=== PATIENT | female | born 1945 | race Caucasian/White ===

== ENCOUNTER 2018-05-18 20:16 | Emergency (ER) | payer MEDICARE ==
[~2018-05-18] VITALS: Ht 167.6 cm; Wt 81.7 kg
[2018-05-18 21:06] LABS: BASOPHILS ABSOLUTE AUTO 0.06 K/mm3 (0.00-0.23); BASOPHILS PERCENT AUTO 1 % (0-2); EOSINOPHILS ABSOLUTE AUTO 0.21 K/mm3 (0.00-0.68); EOSINOPHILS PERCENT AUTO 2 % (0-6); Hematocrit 45.7 % (33.0-51.0); Hemoglobin 15.2 g/dL (11.5-16.0); IMMATURE GRAN ABSOLUTE AUTO 0.04 K/mm3 (0.00-0.10); IMMATURE GRAN PERCENT AUTO 0 % (0-1); LYMPHOCYTES ABSOLUTE AUTO 1.37 K/mm3 (0.84-5.20); LYMPHOCYTES PERCENT AUTO 13 % (21-46); MONOCYTES PERCENT AUTO 5 % (4-13); Mean Corpuscular HGB 30.2 pg (26.0-34.0); Mean Corpuscular HGB Conc 33.3 g/dL (31.5-36.5); Mean Corpuscular Volume 91 fL (80-100); Mean Platelet Volume 10.7 fL (9.1-12.4); NEUTROPHILS ABSOLUTE AUTO 8.22 K/mm3 (1.96-9.15); NEUTROPHILS PERCENT AUTO 79 % (41-73); Platelet Count 140 K/mm3 (150-400); RDW Standard Deviation 46.5 fL (35.1-46.3); Red Blood Cell Count 5.03 M/mm3 (3.80-5.20)
[2018-05-18 21:07] LABS: Source, Urine Clean Catch
[2018-05-18 21:14] LABS: Bilirubin, Urine Neg (Neg); Blood, Urine 1+ (Neg); Glucose Qualitative, Urine Neg (Neg); Ketones, Urine 1+ (Neg); Leukocyte Esterase, Urine 1+ (Neg); Nitrite, Urine Neg (Neg); Protein, Urine 1+ (Neg); Urobilinogen, Urine 1+ (Normal)
[2018-05-18 21:23] LABS: Albumin, Blood 4.2 g/dL (3.4-5.0); Albumin/Globulin Ratio 1.1 (0.8-1.8); Bilirubin, Total 0.5 mg/dL (0.1-1.0); Bun/Creatinine Ratio 16.9 (12.0-20.0); Calcium, Blood 9.1 mg/dL (8.5-10.1); Creatinine, Blood 1.48 mg/dL (0.40-1.00); Globulin, Blood 3.8 g/dL (2.2-4.0); Potassium, Blood 4.1 mmol/L (3.5-5.5)
[2018-05-18 21:29] LABS: Appearance, Urine Hazy (Clear); Bacteria Few /hpf; Color, Urine Yellow (P-Yellow); Squamous Epithelial Cells Few /hpf (Few)
[2018-05-18 21:30] LABS: Mucus Light ([, 0-Heavy])
[2018-05-18] MEDS ORDERED: CLOP75 PO (22:07)
[2018-05-18] MEDS ORDERED: PANT20 PO (22:07)
[2018-05-18] MEDS ORDERED: SERT100 PO (22:07)
[2018-05-18] MEDS ORDERED: AMLO5 PO (22:07)
[2018-05-18] MEDS ORDERED: CARV6.25 PO (22:07)
[2018-05-18] MEDS ORDERED: LOSA50 PO (22:07)
[2018-05-18] MEDS ORDERED: CENTRUM SILVER1 EAC2 PO (22:08)
[2018-05-18] MEDS ORDERED: ASPI81CH PO (22:08)
[2018-05-18] MEDS ORDERED: ALBU90OI61 INH (22:08)
[2018-05-18] MEDS ORDERED: BREO ELLIPTA 11 EACH INH (22:08)
== END 2018-05-19 00:55 | disposition home or self-care (01) ==
LOC: ER 20:16
PROVIDERS: Emergency Medicine
DX: K44.9 Diaphragmatic hernia without obstruction or gangrene (principal); K59.00 Constipation, unspecified; I10 Essential (primary) hypertension; J45.909 Unspecified asthma, uncomplicated; Z88.0 Allergy status to penicillin; Z88.5 Allergy status to narcotic agent; Z79.899 Other long term (current) drug therapy; Z79.82 Long term (current) use of aspirin
CPT/HCPCS: 74177; 80053; 81001; 83690; 85025; 87086; 99284-25; Q9967

== ENCOUNTER 2019-01-21 15:02 | Emergency (ER) | payer MEDICARE ==
[~2019-01-21] VITALS: Ht 165.1 cm; Wt 77.1 kg
[~2019-01-21 15:02] MED LIST: ALBU90OI61 INH; AMLO5 PO; ASPI81CH PO; BREO ELLIPTA 11 EACH INH; CARV6.25 PO; CENTRUM SILVER1 EAC2 PO; CLOP75 PO; LOSA50 PO; PANT20 PO; SERT100 PO
== END 2019-01-21 16:51 | disposition home or self-care (01) ==
LOC: ER 15:02
DX: S00.81XA Abrasion of other part of head, initial encounter (principal); I10 Essential (primary) hypertension; K21.9 Gastro-esophageal reflux disease without esophagitis; Z88.0 Allergy status to penicillin; Z88.5 Allergy status to narcotic agent; Z79.899 Other long term (current) drug therapy; Z79.01 Long term (current) use of anticoagulants; Z86.73 Personal history of transient ischemic attack (TIA), and cerebral infarction without residual deficits; Z87.891 Personal history of nicotine dependence; W01.0XXA Fall on same level from slipping, tripping and stumbling without subsequent striking against object, initial encounter
CPT/HCPCS: 70450; 99283-25

== ENCOUNTER 2019-10-05 21:51 | Inpatient (IN) | payer MEDICARE ==
[~2019-10-05] VITALS: Ht 165.1 cm; Wt 73.9 kg
[2019-10-05 22:46] LABS: BASOPHILS ABSOLUTE AUTO 0.08 K/mm3 (0.00-0.23); BASOPHILS PERCENT AUTO 1 % (0-2); EOSINOPHILS ABSOLUTE AUTO 0.16 K/mm3 (0.00-0.68); EOSINOPHILS PERCENT AUTO 3 % (0-6); Hematocrit 45.2 % (33.0-51.0); Hemoglobin 14.8 g/dL (11.5-16.0); IMMATURE GRAN ABSOLUTE AUTO 0.05 K/mm3 (0.00-0.10); IMMATURE GRAN PERCENT AUTO 1 % (0-1); LYMPHOCYTES ABSOLUTE AUTO 0.75 K/mm3 (0.84-5.20); LYMPHOCYTES PERCENT AUTO 12 % (21-46); MONOCYTES ABSOLUTE AUTO 0.25 K/mm3 (0.16-1.47); MONOCYTES PERCENT AUTO 4 % (4-13); Mean Corpuscular HGB 30.1 pg (26.0-34.0); Mean Corpuscular HGB Conc 32.7 g/dL (31.5-36.5); Mean Corpuscular Volume 92 fL (80-100); NEUTROPHILS ABSOLUTE AUTO 5.11 K/mm3 (1.96-9.15); NEUTROPHILS PERCENT AUTO 80 % (41-73); RDW Coefficient Variation 14.4 % (11.7-14.2); RDW Standard Deviation 48.6 fL (35.1-46.3); Red Blood Cell Count 4.92 M/mm3 (3.80-5.20)
[2019-10-05] MEDS ORDERED: IRBESARTAN300 MG PO (22:46)
[2019-10-05 22:47] LABS: Mean Platelet Volume 13.5 fL (9.1-12.4)
[2019-10-05] MEDS ORDERED: Prednisone50 MG PO (22:47)
[2019-10-05 22:48] LABS: Platelet Count 38 K/mm3 (150-400)
[2019-10-05] MEDS ORDERED: FUROSEMIDE20 MG PO (22:48)
[2019-10-05 22:56] LABS: Albumin, Blood 3.6 g/dL (3.4-5.0); Albumin/Globulin Ratio 0.9 (0.8-1.8); Bilirubin, Total 0.6 mg/dL (0.1-1.0); Bun/Creatinine Ratio 20.1 (12.0-20.0); Calcium, Blood 8.5 mg/dL (8.5-10.1); Creatinine, Blood 1.39 mg/dL (0.40-1.00); Globulin, Blood 4.1 g/dL (2.2-4.0); Total Protein, Blood 7.7 g/dL (6.4-8.2)
[2019-10-05 23:16] LABS: International Normalized Ratio 1.05; Prothrombin Time Results 11.1 Sec (9.7-11.5)
[2019-10-05 23:37] LABS: BASOPHILS ABSOLUTE AUTO 0.07 K/mm3 (0.00-0.23); BASOPHILS PERCENT AUTO 1 % (0-2); EOSINOPHILS ABSOLUTE AUTO 0.14 K/mm3 (0.00-0.68); EOSINOPHILS PERCENT AUTO 2 % (0-6); Hematocrit 44.6 % (33.0-51.0); Hemoglobin 14.5 g/dL (11.5-16.0); IMMATURE GRAN ABSOLUTE AUTO 0.04 K/mm3 (0.00-0.10); IMMATURE GRAN PERCENT AUTO 1 % (0-1); LYMPHOCYTES ABSOLUTE AUTO 0.59 K/mm3 (0.84-5.20); LYMPHOCYTES PERCENT AUTO 10 % (21-46); MONOCYTES ABSOLUTE AUTO 0.31 K/mm3 (0.16-1.47); MONOCYTES PERCENT AUTO 5 % (4-13); Mean Corpuscular HGB 30.1 pg (26.0-34.0); Mean Corpuscular HGB Conc 32.5 g/dL (31.5-36.5); Mean Corpuscular Volume 93 fL (80-100); NEUTROPHILS ABSOLUTE AUTO 4.97 K/mm3 (1.96-9.15); NEUTROPHILS PERCENT AUTO 81 % (41-73); RDW Coefficient Variation 14.4 % (11.7-14.2); RDW Standard Deviation 48.8 fL (35.1-46.3); Red Blood Cell Count 4.81 M/mm3 (3.80-5.20); White Blood Cell Count 6.12 K/mm3 (4.00-11.30)
[2019-10-05 23:38] LABS: Mean Platelet Volume 13.1 fL (9.1-12.4); Platelet Count 37 K/mm3 (150-400)
[2019-10-05 23:41] LABS: Base Excess Venous 6.7 mmol/L; Bicarbonate Venous 28.9 mmol/L (24.0-30.0); pH Blood Venous 7.41 (7.34-7.37)
[2019-10-05 23:59] LABS: Source, Urine Clean Catch
[2019-10-06 00:02] LABS: Bilirubin, Urine Neg (Neg); Blood, Urine 5+ (Neg); Glucose Qualitative, Urine Neg (Neg); Ketones, Urine Neg (Neg); Leukocyte Esterase, Urine 2+ (Neg); Nitrite, Urine Neg (Neg); Protein, Urine 2+ (Neg); Urobilinogen, Urine NORM (Normal)
[2019-10-06 00:04] LABS: Appearance, Urine Hazy (Clear); Bacteria Rare /hpf; Color, Urine Yellow (P-Yellow); Mucus Light (0-Heavy); Squamous Epithelial Cells Few /hpf (Few)
[2019-10-06 00:05] LABS: Amorphous Light (0-Heavy); Transitional Epithelial Cells Few /hpf (0-Rare)
[2019-10-06 05:18] LABS: Hematocrit 43.1 % (33.0-51.0); Hemoglobin 13.8 g/dL (11.5-16.0); Mean Corpuscular HGB 29.6 pg (26.0-34.0); Mean Corpuscular Volume 93 fL (80-100); RDW Coefficient Variation 14.5 % (11.7-14.2); RDW Standard Deviation 48.9 fL (35.1-46.3); Red Blood Cell Count 4.66 M/mm3 (3.80-5.20); White Blood Cell Count 6.14 K/mm3 (4.00-11.30)
[2019-10-06 05:23] LABS: Mean Platelet Volume 13.7 fL (9.1-12.4)
[2019-10-06 05:39] LABS: Platelet Count 27 K/mm3 (150-400)
[2019-10-06 05:56] LABS: Albumin, Blood 3.1 g/dL (3.4-5.0); Albumin/Globulin Ratio 0.9 (0.8-1.8); Bun/Creatinine Ratio 21.5 (12.0-20.0); Calcium, Blood 8.4 mg/dL (8.5-10.1); Creatinine, Blood 1.35 mg/dL (0.40-1.00); Globulin, Blood 3.6 g/dL (2.2-4.0); Potassium, Blood 3.8 mmol/L (3.5-5.5); Total Protein, Blood 6.7 g/dL (6.4-8.2)
[2019-10-06 06:15] LABS: Adenovirus Not Detected (NOT DETECT); Bordetella pertussis Not Detected (NOT DETECT); Chlamydophila pneumoniae Not Detected (NOT DETECT); Coronavirus 229E Not Detected (NOT DETECT); Coronavirus HKU1 Not Detected (NOT DETECT); Coronavirus NL63 Not Detected (NOT DETECT); Coronavirus OC43 Not Detected (NOT DETECT); Human Metapneumovirus Not Detected (NOT DETECT); Human Rhinovirus/Enterovirus Not Detected (NOT DETECT); Influenza A Not Detected (NOT DETECT); Influenza A/2009-H1 Not Detected (NOT DETECT); Influenza A/H1 Not Detected (NOT DETECT); Influenza A/H3 Not Detected (NOT DETECT); Influenza B Not Detected (NOT DETECT); Mycoplasma pneumoniae Not Detected (NOT DETECT); Parainfluenza Virus 1 Not Detected (NOT DETECT); Parainfluenza Virus 2 Not Detected (NOT DETECT); Parainfluenza Virus 3 Not Detected (NOT DETECT); Parainfluenza Virus 4 Not Detected (NOT DETECT); Respiratory Syncytial Virus Not Detected (NOT DETECT)
--- NOTE | 2019-10-06 06:27 | NUR ---
SHIFT SUMMARY PT WAS A NEW ADMIT DURING THE NIGHT, ARRIVING ON THE FLOOR AT 0215. SHE WAS ADMITTED FOR ACUTE ENCEPHALOPATHY. PT IS A&O X 1-2, CONFUSED AND EASILY DISTRACTED. PT CAN HAVE DIFFICULTY ANSWERING QUESTIONS, AND IS FORGETFUL AT TIMES. PER REPORT, PT IS NORMALLY A&O X 4 AND INDEPENDENT AT BASELINE. SHE DENIED ANY COMPLAINTS OF ACUTE PAIN, NAUSEA OR SOB. VITAL SIGNS STABLE. PT RECEIVED NS @ 100 ML/HR THROUGH THE NIGHT. NO OTHER ACUTE CHANGES IN PT CONDITION NOTED SINCE ADMISSION. WILL CONTINUE TO MONITOR AND TREAT PER EMAR UNTIL HAND OFF TO DAY SHIFT RN.
[2019-10-06 14:20] LABS: Source, Urine Clean Catch
[2019-10-06 14:25] LABS: Bilirubin, Urine Neg (Neg); Blood, Urine Neg (Neg); Glucose Qualitative, Urine Neg (Neg); Ketones, Urine Neg (Neg); Leukocyte Esterase, Urine Neg (Neg); Nitrite, Urine Neg (Neg); Protein, Urine 1+ (Neg); Specific Gravity, Urine 1.015 (1.003-1.022); Urobilinogen, Urine NORM (Normal)
[2019-10-06] MEDS ORDERED: THERA-D2000 UNIT PO (14:31)
[2019-10-06 14:34] LABS: Appearance, Urine Clear (Clear); Color, Urine Yellow (P-Yellow)
[2019-10-06 14:40] LABS: U Amphetamine Screen Not Detected; U Barbituate Screen Not Detected; U Benzodiazapine Screen Not Detected; U Buprenorphine Screen Not Detected; U Cannabinoids Screen Not Detected; U Cocaine Screen Not Detected; U Methadone Screen Not Detected; U Methamphetamine Screen Not Detected; U Opiates Screen Not Detected; U Oxycodone Screen Not Detected; U Phencyclidine Screen Not Detected; U Propoxyphene Screen Not Detected
--- NOTE | 2019-10-06 19:02 | NUR ---
PT. SLEEPING AT THIS TIME, REFUSED DINNER AND ONLY TOOK BITES OF HER BKFST AND LUNCH. PT. VERY LETHARGIC, NEURO CHECKS WNL. PT. NOTED TO HAVE SUSPICIOUS BRUISING. PT. MENTATION WITHOUT CHANGE TODAY. BLADDER SCAN DONE THIS AM R/T NO VOID. THERE WAS 285 IN BLADDER. IN/OUT CATH PERFORMED SO WE COULD SEND THE URINE FOR TESTING. URINE WAS CLEAR YELLOW. PT. IS TO HAVE AN EEG BUT THEY WILL NOT BE ABLE TO DO IT UNTIL TUESDAY. PREP ON FRONT OF CHART. TOX SCREEN AND UA CLEAR.
--- NOTE | 2019-10-07 02:46 | NUR ---
Pt on tele, had short run of V-tac, and was a mouth breather sats @ 85. Asymptomatic, (Dr Link) notified, orders received for a mask for O2. Currently sats in the 90's. Remains asymptomatic. Call light in reach. Will continue to monitor.
--- NOTE | 2019-10-07 03:00 | NUR ---
Pt resting quietly with O2 mask in use. Sats remain in the 90's since O2 mask applied. No further episodes of V-tach reported. Will continue to monitor. - JCRN
[2019-10-07 05:56] LABS: BASOPHILS ABSOLUTE AUTO 0.04 K/mm3 (0.00-0.23); BASOPHILS PERCENT AUTO 1 % (0-2); EOSINOPHILS ABSOLUTE AUTO 0.08 K/mm3 (0.00-0.68); EOSINOPHILS PERCENT AUTO 1 % (0-6); Hematocrit 40.1 % (33.0-51.0); Hemoglobin 12.8 g/dL (11.5-16.0); IMMATURE GRAN ABSOLUTE AUTO 0.05 K/mm3 (0.00-0.10); IMMATURE GRAN PERCENT AUTO 1 % (0-1); LYMPHOCYTES ABSOLUTE AUTO 0.43 K/mm3 (0.84-5.20); LYMPHOCYTES PERCENT AUTO 8 % (21-46); MONOCYTES ABSOLUTE AUTO 0.15 K/mm3 (0.16-1.47); MONOCYTES PERCENT AUTO 3 % (4-13); Mean Corpuscular HGB 29.9 pg (26.0-34.0); Mean Corpuscular HGB Conc 31.9 g/dL (31.5-36.5); Mean Corpuscular Volume 94 fL (80-100); NEUTROPHILS ABSOLUTE AUTO 4.85 K/mm3 (1.96-9.15); NEUTROPHILS PERCENT AUTO 87 % (41-73); RDW Coefficient Variation 14.5 % (11.7-14.2); Red Blood Cell Count 4.28 M/mm3 (3.80-5.20)
[2019-10-07 05:58] LABS: Platelet Count 9 K/mm3 (150-400)
[2019-10-07 06:09] LABS: Albumin, Blood 2.6 g/dL (3.4-5.0); Anion Gap 8 mmol/L (6-16); Blood Urea Nitrogen 27 mg/dL (8-24); Bun/Creatinine Ratio 19.9 (12.0-20.0); CO2, Blood 26 mmol/L (21-32); Calcium, Blood 8.2 mg/dL (8.5-10.1); Chloride, Blood 105 mmol/L (98-108); Creatinine, Blood 1.36 mg/dL (0.40-1.00); Glomerular Filtration Rate 41 (60-); Glucose, Blood 101 mg/dL (70-99); Potassium, Blood 3.4 mmol/L (3.5-5.5); Sodium, Blood 139 mmol/L (136-145)
--- NOTE | 2019-10-07 06:11 | NUR ---
Critical lab value of platelets 9. Call placed to MD professional housing consultant, (Dr Link) notified. MD acknowledged said level but gave no new orders. Charge nurse aware. Pt asymptomatic at this time.
[2019-10-07 10:14] LABS: D-Dimer, Quantitative 4.79 mg/L FEU (0.00-0.52)
--- NOTE | 2019-10-07 17:50 | NUR ---
PT. SLEEPING ONCE AGAIN. PT. HAS BEEN DIAPHORETIC T/O THE DAY . CONTINUOUS BIOX PLACED R/T PT. PULLING OXYGEN OFF AND THEN DESATTING. PT'S HR HAS BEEN IN THE 50'S AND 60'S TODAY. DR. HAYDEN NOTIFIED OF PT. NOT HAVING AN ORDER FOR FLUIDS AND PT. HAS ONLY TAKEN A FEW BITES OF MEALS AND DRANK MAYBE 420 OF FLUIDS AMD THATS BEING GENEROUS. PT. WAS GIVEN A BED BATH TODAY AND HAIR WAS WASHED. RESULTS OF CT WITH CONTRAST IN BUT DOCTOR HAS NOT BEEN BACK TO SEE THE PATIENT SINCE THEN.
--- NOTE | 2019-10-08 05:11 | NUR ---
SHIFT SUMMARY PT SLEPT SOUNDLY T/O MOST OF SHIFT. THIS AM PT IS MORE ALERT THAN LAST NIGHT. AOX3-AWARE OF MONTH, SELF, PRESIDENT & KNOWS SHE'S IN THE HOSPITAL. WHEREAS LAST NIGHT SHE THOUGHT SHE WAS IN A HALFWAY. FOUND SITTING ON SIDE OF BED THIS AM. VSS. TELE IN PLACE RUNNING WAP W/PAC & HR 60. DENIES PAIN, DYSPNEA OR N/V. MORE VOCAL & TALKATIVE THAN LAST NIGHT, ASKS ABOUT & STATES SHE NEEDS TO USE RESTROOM. SPO2 90-94% ON 10L O2 VIA VENTI MASK, E/U RESPIRATIONS. ABLE TO FOLLOW DIRECTIONS. CALL LIGHT IN REACH & I WILL CONT TO MONITOR
[2019-10-08 05:45] LABS: Hematocrit 41.1 % (33.0-51.0); Hemoglobin 13.5 g/dL (11.5-16.0); Mean Corpuscular HGB Conc 32.8 g/dL (31.5-36.5); RDW Coefficient Variation 14.6 % (11.7-14.2); RDW Standard Deviation 48.1 fL (35.1-46.3); White Blood Cell Count 4.43 K/mm3 (4.00-11.30)
[2019-10-08 05:57] LABS: Mean Corpuscular Volume 91 fL (80-100)
[2019-10-08 05:59] LABS: Platelet Count 7 K/mm3 (150-400)
[2019-10-08 06:00] LABS: Bun/Creatinine Ratio 24.4 (12.0-20.0); Calcium, Blood 8.5 mg/dL (8.5-10.1); Creatinine, Blood 1.19 mg/dL (0.40-1.00); Potassium, Blood 3.6 mmol/L (3.5-5.5)
[2019-10-08 06:23] LABS: BAND PERCENT MAN 14 % (0-8); BASOPHILS ABSOLUTE MAN 0.04 K/mm3 (0.00-0.23); BASOPHILS PERCENT MAN 1 % (0-2); EOSINOPHILS ABSOLUTE MAN 0.31 K/mm3 (0.00-0.68); EOSINOPHILS PERCENT MAN 7 % (0-6); LYMPHOCYTES % ATYPICAL MANUAL 3 % (0-0); LYMPHOCYTES ABSOLUTE MAN 0.44 K/mm3 (0.84-5.20); LYMPHOCYTES PERCENT MAN 7 % (21-46); MONOCYTES ABSOLUTE MAN 0.13 K/mm3 (0.16-1.47); MONOCYTES PERCENT MAN 3 % (4-13); NEUTROPHILS ABSOLUTE MAN 3.49 K/mm3 (1.96-9.15); SEG NEUTROPHILS PERCENT MAN 65 % (41-73); TOTAL CELLS COUNTED 100
--- NOTE | 2019-10-08 06:29 | NUR ---
CRITICAL LAB AT 0600 THIS AM I WAS NOTIFIED OF CRITICAL PLT @7, DOWN FROM 9 YESTERDAY. PT ASYMPTOMATIC, RESTING COMFORTABLY SLEEPING @THIS TIME. NOTIFIED DR MARAVILLA, SHE [facility] & TO HAVE THEM NOTIFY DR KEARNS OF DECREASE IN LAB. NO NEW ORDERS AT THIS TIME.
--- NOTE | 2019-10-08 07:56 | NUR ---
critical low platlets CALLED TO ENSURE THAT SHE NEW ABOUT THE PTS PLT COUNT OF 7, INSTRUCTED BY THE GLUE SPRAYER RN LAMONT
[2019-10-08 09:22] LABS: Platelet Count 6 K/mm3 (150-400)
[2019-10-08 12:29] LABS: Platelet Count 10 K/mm3 (150-400)
[2019-10-08 18:41] LABS: BASOPHILS ABSOLUTE AUTO 0.03 K/mm3 (0.00-0.23); BASOPHILS PERCENT AUTO 1 % (0-2); EOSINOPHILS ABSOLUTE AUTO 0.37 K/mm3 (0.00-0.68); EOSINOPHILS PERCENT AUTO 8 % (0-6); Hematocrit 37.6 % (33.0-51.0); Hemoglobin 12.1 g/dL (11.5-16.0); IMMATURE GRAN ABSOLUTE AUTO 0.02 K/mm3 (0.00-0.10); IMMATURE GRAN PERCENT AUTO 0 % (0-1); LYMPHOCYTES ABSOLUTE AUTO 0.75 K/mm3 (0.84-5.20); LYMPHOCYTES PERCENT AUTO 16 % (21-46); MONOCYTES ABSOLUTE AUTO 0.19 K/mm3 (0.16-1.47); MONOCYTES PERCENT AUTO 4 % (4-13); Mean Corpuscular HGB Conc 32.2 g/dL (31.5-36.5); Mean Corpuscular Volume 93 fL (80-100); NEUTROPHILS ABSOLUTE AUTO 3.31 K/mm3 (1.96-9.15); NEUTROPHILS PERCENT AUTO 71 % (41-73); RDW Coefficient Variation 14.6 % (11.7-14.2); RDW Standard Deviation 49.2 fL (35.1-46.3); Red Blood Cell Count 4.03 M/mm3 (3.80-5.20); White Blood Cell Count 4.67 K/mm3 (4.00-11.30)
[2019-10-08 18:43] LABS: Platelet Count 11 K/mm3 (150-400)
--- NOTE | 2019-10-08 19:02 | NUR ---
PT IS A/OX3, PLEASANT AND COOPERATIVE, THE PT IS UP WITH MINIMAL ASSIST, THE PT IS ON 4L/MIN O2 AT THIS TIME SATS ARE IN THE LOW 90S, THE PT RECIEVED 2 UNITS OF PLATLETS TODAY AND TOLERATED WELL, AFTER THE FIRST UNIT OF PLTS A CALL WAS MADE TO SOM STOUT OFFICE TO INFORM HIM OF THE PLT COUNT AND TO DISCUSS ORDERS THAT NEEDED TO BE ADDRESSED, HOWEVER, THE CALL WAS NOT RETURNED,Be STOUT ORDERED THE 2ND UNIT OF PLTS, THE PTS WAS IN TO SEE THE PT FOR MOST OF THE DAY, CALL LIGHT IN REACH, WILL CONTINUE TO MONITOR AND ASSESS FOR CHANGES
[2019-10-09 05:10] LABS: BASOPHILS ABSOLUTE AUTO 0.03 K/mm3 (0.00-0.23); BASOPHILS PERCENT AUTO 1 % (0-2); EOSINOPHILS ABSOLUTE AUTO 0.31 K/mm3 (0.00-0.68); EOSINOPHILS PERCENT AUTO 8 % (0-6); Hemoglobin 11.6 g/dL (11.5-16.0); Mean Corpuscular HGB 30.2 pg (26.0-34.0); Mean Corpuscular HGB Conc 32.2 g/dL (31.5-36.5); Mean Corpuscular Volume 94 fL (80-100); RDW Coefficient Variation 14.5 % (11.7-14.2); RDW Standard Deviation 49.5 fL (35.1-46.3); Red Blood Cell Count 3.84 M/mm3 (3.80-5.20); White Blood Cell Count 3.84 K/mm3 (4.00-11.30)
[2019-10-09 05:13] LABS: IMMATURE GRAN ABSOLUTE AUTO 0.03 K/mm3 (0.00-0.10); IMMATURE GRAN PERCENT AUTO 1 % (0-1); LYMPHOCYTES ABSOLUTE AUTO 0.68 K/mm3 (0.84-5.20); LYMPHOCYTES PERCENT AUTO 18 % (21-46); MONOCYTES ABSOLUTE AUTO 0.25 K/mm3 (0.16-1.47); MONOCYTES PERCENT AUTO 7 % (4-13); NEUTROPHILS ABSOLUTE AUTO 2.54 K/mm3 (1.96-9.15); NEUTROPHILS PERCENT AUTO 66 % (41-73)
[2019-10-09 05:14] LABS: Platelet Count 10 K/mm3 (150-400)
[2019-10-09 05:24] LABS: Bun/Creatinine Ratio 21.1 (12.0-20.0); Calcium, Blood 8.1 mg/dL (8.5-10.1); Creatinine, Blood 1.09 mg/dL (0.40-1.00); Magnesium, Blood 1.9 mg/dL (1.6-2.4); Potassium, Blood 3.1 mmol/L (3.5-5.5)
--- NOTE | 2019-10-09 05:26 | NUR ---
LICENSED HOME INSPECTOR SUMMARY PT SLEPT WELL THROUGHOUT THE NIGHT. A/O X4 WITH OCCASIONAL FORGETFULNESS. PLEASANT AND COOPERATIVE. DENIED PAIN, SOB, AND NAUSEA. PT REMAINS ON 4 L O2 NASAL CANNULA. OXYGEN DESAT SOMETIMES DUE TO POSITIONG OF NASAL CANNULA. NURSING STAFF ADJUSTED IT THROUGHOUT THE NIGHT. O2 COMES BACK UP AFTER RESPOSIONING OF NASAL CANNULA. VSS, NO ACUTE CHANGES, WILL CONTINUE TO MONITOR.
[2019-10-09] MEDS ORDERED: ONDA4ODT PO (11:35)
[2019-10-09] MEDS ORDERED: FAMO20 PO (11:36)
--- NOTE | 2019-10-09 18:06 | NUR ---
PT IS A/OX3, PLEASANT AND COOPERATIVE, FORGETFULL AT TIMES, THE PT WAS UP ON THE SIDE OF THE BED FOR DINNER AND AT TIMES T/O THE DAY, THE PT WAS SHOWERED, THE PT HAD AN EEG PERFORMED TODAY AND TOLERATED IT WELL, THE PT WAS GIVEN IV DECODRON AND TOLERATED IT WELL, THE PT CONTINUES TO NEED O2 VIA NC @ 4L/MIN, THE PT DENIED ANY PAIN T/O THE DAY, THE PTS WAS AT THE BEDSIDE T/O THE DAY, CALL LIGHT IN REACH, WILL CONTINUE TO MONITOR AND ASSESS FOR CHANGES
--- NOTE | 2019-10-10 04:30 | NUR ---
SHIFT SUMMARY PT HAS SLEPT MOST OF THE NIGHT. A/OX3, BUT FORGETFUL. PT DENIES PAIN OR NEEDS, SHE REFUSES HER HS MEDS, AND STATES THAT SHE HAD ALREADY TAKEN THEM. I NOTIFIED HER THAT OUR RECORDS DID NOT REFLECT THAT SHE TOOK HER 2100 MEDS, BUT SHE CONTINUED TO REFUSED. PT ON 4L O2 AND DESATS ON RA. PT WEAK AND NEEDS 1 PA TO AMBULATE TO THE BSC. INCONTINENT OF STOOL THIS SHIFT. IVF INFUSING ORDERED. VITALS STABLE. NO ACUTE CHANGES TO REPORT TO OVERNIGHT. WILL CONTINUE TO MONITOR AND REPORT TO ONCOMING RN.
[2019-10-10 06:01] LABS: BASOPHILS ABSOLUTE AUTO 0.01 K/mm3 (0.00-0.23); BASOPHILS PERCENT AUTO 0 % (0-2); EOSINOPHILS PERCENT AUTO 0 % (0-6); Hematocrit 35.8 % (33.0-51.0); Hemoglobin 11.4 g/dL (11.5-16.0); IMMATURE GRAN ABSOLUTE AUTO 0.03 K/mm3 (0.00-0.10); IMMATURE GRAN PERCENT AUTO 1 % (0-1); LYMPHOCYTES ABSOLUTE AUTO 0.71 K/mm3 (0.84-5.20); LYMPHOCYTES PERCENT AUTO 17 % (21-46); MONOCYTES ABSOLUTE AUTO 0.16 K/mm3 (0.16-1.47); MONOCYTES PERCENT AUTO 4 % (4-13); Mean Corpuscular HGB 30.7 pg (26.0-34.0); Mean Corpuscular HGB Conc 31.8 g/dL (31.5-36.5); NEUTROPHILS ABSOLUTE AUTO 3.27 K/mm3 (1.96-9.15); NEUTROPHILS PERCENT AUTO 78 % (41-73); RDW Coefficient Variation 14.4 % (11.7-14.2); RDW Standard Deviation 49.9 fL (35.1-46.3); Red Blood Cell Count 3.71 M/mm3 (3.80-5.20); White Blood Cell Count 4.18 K/mm3 (4.00-11.30)
[2019-10-10 06:06] LABS: Mean Corpuscular Volume 97 fL (80-100)
[2019-10-10 06:07] LABS: Platelet Count 19 K/mm3 (150-400)
[2019-10-10 06:18] LABS: Bun/Creatinine Ratio 24.8 (12.0-20.0); Calcium, Blood 8.5 mg/dL (8.5-10.1); Creatinine, Blood 1.09 mg/dL (0.40-1.00); Magnesium, Blood 2.2 mg/dL (1.6-2.4); Potassium, Blood 3.7 mmol/L (3.5-5.5)
--- NOTE | 2019-10-10 08:30 | NUR ---
PT PLEASANT COOP A/O. SEEMS SOME VAGUE ON SOME DETAILED QUESTIONS. H/R IRREG, NO MURMER NOTED. PER TELE: NSR WITH PACS, RATE 73. FLIPS TO WAP. SINCE ADMIT. LUNGS CLEAR UPPER, CRACKLES BASES. RESP EASY, UNLABORED, ON 4L O2. TURNED TO 2L. PT DOING WELL SATS > 90%. BT X4 LAST BM TODAY. VOIDS PER BSC. 1 ASST. FWW. SOME INCONT. IN ATTENDS. BED IN LOW POSITION, CALL LITE IN REACH, CALLS APPROP
--- NOTE | 2019-10-10 18:11 | NUR ---
PT PLEASANT TODAY. VERY TALKATIVE. HAVE TITRATED O2 DOWN TO 2L TODAY. MAINTAINING ABOVE 90-92%. SHE WALKED TREADWELL LOOP X2 TODAY. WITH PT. PT STATES DID WELL. NO SOB. HAVE WORKED WITH HER SEVERAL TIMES ON I/S BREATHING. SHE IS WEAK, BUT TRYING. NO OTHER CONCERNS AT THIS TIME. BED IN LOW POSITIOIN, CALL LITE IN REACH, CALLS APPROP
--- NOTE | 2019-10-11 04:32 | NUR ---
SHIFT SUMMARY: 74 Y/O FEMALE RESTED COMFORTABLY ALL SHIFT, PTS HEART RATE FLUCTUATES PER TELEMETRY AND CONTINUOUS PULSE OXIMETER 44-56 ALL NIGHT, DENIES CHEST PAIN OR NAUSEA; TELEMETRY REFLECTS NSR WITH PAC PER SANTIAGO GARCIA, WEARING O2 AT 2L/M PER NASAL CANNULA; IV INTACT; BED ALARM APPLIED, BED LOW POSITION WITH CALL LIGHT AT SIDE.
[2019-10-11 05:57] LABS: BASOPHILS ABSOLUTE AUTO 0.02 K/mm3 (0.00-0.23); BASOPHILS PERCENT AUTO 0 % (0-2); EOSINOPHILS PERCENT AUTO 0 % (0-6); Hemoglobin 11.2 g/dL (11.5-16.0); IMMATURE GRAN ABSOLUTE AUTO 0.07 K/mm3 (0.00-0.10); IMMATURE GRAN PERCENT AUTO 1 % (0-1); LYMPHOCYTES PERCENT AUTO 11 % (21-46); MONOCYTES ABSOLUTE AUTO 0.36 K/mm3 (0.16-1.47); MONOCYTES PERCENT AUTO 4 % (4-13); Mean Corpuscular HGB 30.1 pg (26.0-34.0); NEUTROPHILS ABSOLUTE AUTO 7.36 K/mm3 (1.96-9.15); NEUTROPHILS PERCENT AUTO 84 % (41-73); RDW Coefficient Variation 14.6 % (11.7-14.2); RDW Standard Deviation 50.4 fL (35.1-46.3); Red Blood Cell Count 3.72 M/mm3 (3.80-5.20); White Blood Cell Count 8.81 K/mm3 (4.00-11.30)
[2019-10-11 06:03] LABS: Mean Corpuscular Volume 94 fL (80-100)
[2019-10-11 06:04] LABS: Platelet Count 26 K/mm3 (150-400)
[2019-10-11 06:23] LABS: Bun/Creatinine Ratio 26.6 (12.0-20.0); Calcium, Blood 8.6 mg/dL (8.5-10.1); Creatinine, Blood 1.09 mg/dL (0.40-1.00); Magnesium, Blood 2.3 mg/dL (1.6-2.4); Potassium, Blood 3.9 mmol/L (3.5-5.5)
--- NOTE | 2019-10-11 18:21 | NUR ---
SHIFT SUMMARY. A&OX3, SBA WITH FWW AND GB IN ROOM, BED ALARM ACTIVATED PT DOES NOT UTILIZE CALL LIGHT. PT DENIES PAIN, N/V. PT TITRATED DOWN TO 1L O2 NC AT REST. HOME O2 EVAL COMPLETED THIS EVENING, RT REPORTED THAT PT REQUIRED 3L O2 NC WITH ACTIVITY. PT AND REPORTED THAT PT HAD SCHEDULED L VENOUS DOPPLER SCHEDULED OUTPATIENT 10/09, THIS WAS COMPLETED INPATIENT 10/08. PT REPORTED WOUND TO LLE, ASSESSED LLE AND FOUND NO WOUND, JUST 3 SMALL SCABS. NO NEW CHANGES OR CONCERNS.
--- NOTE | 2019-10-11 21:20 | NUR ---
RESTING COMFORTABLY IN BED, LLE ANKLE AREA SLIGHTLY RED FROM OLD WOUND INJURY THIS PAST YEAR PER PATIENT, HAPPY AND COOPERATIVE; DENIES PAIN OR NAUSEA.
--- NOTE | 2019-10-11 22:06 | NUR ---
REPORT RECEIVED FROM ANALY PORTILLO IN ER. PT ADMITTED TO ROOM 343 PER WHEELCHAIR FROM ER.
--- NOTE | 2019-10-12 03:53 | NUR ---
SHIFT SUMMARY: 74 Y/O FEMALE RESTED COMFORTABLY IN BED ALL SHIFT, DENIES PAIN OR NAUSEA; ALERT AND ORIENTED X 4; HAPPY AND COOPERATIVE; WEARING O2 AT 2L/M PER NASAL CANNULA WITH O2 SATS AVERAGING 92%, DENIES DYSPNEA; BED ALARM APPLIED, BED LOW POSITION WITH CALL LIGHT AT SIDE.
[2019-10-12 05:32] LABS: BASOPHILS ABSOLUTE AUTO 0.02 K/mm3 (0.00-0.23); BASOPHILS PERCENT AUTO 0 % (0-2); EOSINOPHILS PERCENT AUTO 0 % (0-6); Hematocrit 34.4 % (33.0-51.0); Hemoglobin 11.1 g/dL (11.5-16.0); IMMATURE GRAN ABSOLUTE AUTO 0.16 K/mm3 (0.00-0.10); IMMATURE GRAN PERCENT AUTO 2 % (0-1); LYMPHOCYTES ABSOLUTE AUTO 0.87 K/mm3 (0.84-5.20); LYMPHOCYTES PERCENT AUTO 8 % (21-46); MONOCYTES ABSOLUTE AUTO 0.48 K/mm3 (0.16-1.47); MONOCYTES PERCENT AUTO 5 % (4-13); Mean Corpuscular HGB 29.6 pg (26.0-34.0); Mean Corpuscular HGB Conc 32.3 g/dL (31.5-36.5); Mean Corpuscular Volume 92 fL (80-100); NEUTROPHILS ABSOLUTE AUTO 9.23 K/mm3 (1.96-9.15); NEUTROPHILS PERCENT AUTO 86 % (41-73); RDW Coefficient Variation 14.6 % (11.7-14.2); RDW Standard Deviation 48.4 fL (35.1-46.3); Red Blood Cell Count 3.75 M/mm3 (3.80-5.20); White Blood Cell Count 10.76 K/mm3 (4.00-11.30)
[2019-10-12 05:40] LABS: Mean Platelet Volume 14.8 fL (9.1-12.4); Platelet Count 48 K/mm3 (150-400)
[2019-10-12 05:51] LABS: Bun/Creatinine Ratio 31.4 (12.0-20.0); Calcium, Blood 8.6 mg/dL (8.5-10.1); Creatinine, Blood 1.05 mg/dL (0.40-1.00); Magnesium, Blood 2.2 mg/dL (1.6-2.4); Potassium, Blood 3.6 mmol/L (3.5-5.5)
--- NOTE | 2019-10-12 16:16 | NUR ---
1553 PT DISCHARGED HOME VIA PERSONAL VEHICLE ACCOMPANIED AND DRIVEN BY . PT ESCORTED TO ENTRANCE VIA W/C BY [employer]. IV REMOVED. RX FOR ZOLOFT FAXED TO [facility] PER PT REQUEST. D/C PACKET REVIEWED WITH AND PT, COPY PROVIDED. PT ON 2L O2 NC VIA PORTABLE TANK AT TIME OF D/C.
[2019-10-16 14:58] LABS: Performing Lab SYMBIODX; Test Name TISSUE BIOPSY
[2019-10-26 09:01] LABS: Result SEE PATHOTH RESULTS
== END 2019-10-12 15:53 | disposition home health service (06) | DRG 40 ==
LOC: ER 21:51 → MEDS 10-06 02:15
PROVIDERS: Family Medicine; Internal Medicine; Internal Medicine Hematology & Oncology; Physician Assistant; ADMIT Internal Medicine
PROC: 07B53ZX Excision of Right Axillary Lymphatic, Percutaneous Approach, Diagnostic (ICD-10-PCS; principal; 2019-10-07)
PROC: 30233R1 Transfusion of Nonautologous Platelets into Peripheral Vein, Percutaneous Approach (ICD-10-PCS; 2019-10-07)
DX: G93.40 Encephalopathy, unspecified (principal); J96.01 Acute respiratory failure with hypoxia; C85.94 Non-Hodgkin lymphoma, unspecified, lymph nodes of axilla and upper limb; I47.1 Supraventricular tachycardia; R47.01 Aphasia; D69.3 Immune thrombocytopenic purpura; J98.11 Atelectasis; I12.9 Hypertensive chronic kidney disease with stage 1 through stage 4 chronic kidney disease, or unspecified chronic kidney disease; N18.3 Chronic kidney disease, stage 3 (moderate); E87.6 Hypokalemia; Z87.891 Personal history of nicotine dependence; I69.398 Other sequelae of cerebral infarction; J44.9 Chronic obstructive pulmonary disease, unspecified; E86.0 Dehydration; I73.9 Peripheral vascular disease, unspecified; R82.71 Bacteriuria
CPT/HCPCS: 0099U; 36415; 36430; 38505; 70450; 71045; 71260; 76942; 80048; 80053; 80069; 81001; 82140; 82803; 83605; 83615; 83735; 84145; 85025; 85027; 85049; 85060; 85379; 85384; 85610; 85730; 86880; 86900; 86901; 87040; 88305; 88341; 88342; 93005; 93010; 93970; 94640; 94760; 94761; 94762; 95819; 97110; 97116; 97162; 97166; 97530; 97535; 99285-25; A9270; C9113; G0480; J0456; J0696; J1100; J1956; J3480; J7030; J7050; P9035; P9612; Q9967

== ENCOUNTER 2020-01-25 00:06 | Inpatient (IN) | payer MEDICARE ==
[~2020-01-25] VITALS: Ht 170.2 cm; Wt 72.6 kg
[~2020-01-25 00:06] MED LIST changes: +FAMO20 PO; +FUROSEMIDE20 MG PO; +IRBESARTAN300 MG PO; +ONDA4ODT PO; +Prednisone50 MG PO; +THERA-D2000 UNIT PO
[2020-01-25 00:31] LABS: BASOPHILS ABSOLUTE AUTO 0.03 K/mm3 (0.00-0.23); BASOPHILS PERCENT AUTO 0 % (0-2); EOSINOPHILS ABSOLUTE AUTO 0.09 K/mm3 (0.00-0.68); EOSINOPHILS PERCENT AUTO 1 % (0-6); Hematocrit 41.7 % (33.0-51.0); Hemoglobin 13.9 g/dL (11.5-16.0); IMMATURE GRAN ABSOLUTE AUTO 0.03 K/mm3 (0.00-0.10); IMMATURE GRAN PERCENT AUTO 0 % (0-1); LYMPHOCYTES ABSOLUTE AUTO 0.97 K/mm3 (0.84-5.20); LYMPHOCYTES PERCENT AUTO 10 % (21-46); MONOCYTES PERCENT AUTO 4 % (4-13); Mean Corpuscular HGB 30.2 pg (26.0-34.0); Mean Corpuscular HGB Conc 33.3 g/dL (31.5-36.5); Mean Corpuscular Volume 91 fL (80-100); Mean Platelet Volume 11.2 fL (9.1-12.4); NEUTROPHILS ABSOLUTE AUTO 8.72 K/mm3 (1.96-9.15); NEUTROPHILS PERCENT AUTO 85 % (41-73); Platelet Count 82 K/mm3 (150-400); RDW Coefficient Variation 13.2 % (11.7-14.2); Red Blood Cell Count 4.61 M/mm3 (3.80-5.20); White Blood Cell Count 10.24 K/mm3 (4.00-11.30)
[2020-01-25 00:47] LABS: Albumin, Blood 3.5 g/dL (3.4-5.0); Albumin/Globulin Ratio 1.1 (0.8-1.8); Bilirubin, Total 0.4 mg/dL (0.1-1.0); Bun/Creatinine Ratio 22.5 (12.0-20.0); Calcium, Blood 8.8 mg/dL (8.5-10.1); Creatinine, Blood 1.42 mg/dL (0.40-1.00); Globulin, Blood 3.3 g/dL (2.2-4.0); Potassium, Blood 3.7 mmol/L (3.5-5.5); Total Protein, Blood 6.8 g/dL (6.4-8.2)
[2020-01-25] MEDS ORDERED: LEVFLO500 PO (01:39)
[2020-01-25] MEDS ORDERED: RIVASTIGMINE1.5 MG PO (01:40)
[2020-01-25] MEDS ORDERED: Percocet 5-3251 EACH PO (06:02)
--- NOTE | 2020-01-25 16:38 | NUR ---
PT ADMITTED THROUGH THE ED POST FALL AT HOME RESULTING IN A Fx OF THE LEFT HUMORUS. ARM IS IN A SLING. PT HAS LEWY BODY DEMENTIA, PER HER SPOUSE HER DEMENTIA IS FAIRLY SIGNIFICANT. SPOUSE CALLED, HE WAS UNDER THE IMPRESSION THAT THE PT WAS TO DC HOME. PT WAS INSTEAD ADMITTED D/T HYPOXIA. CALLED AND SPOKE TO DR KEY RECIEVED ORDER FOR PT EVAL. IF PT IS AT BASELINE ACTIVITY SHE MAY DC HOME. PER PHYSICAL THERAPY THE RECOMENDATION IS SNF AT THIS TIME. ALL OF THIS PASSED ON IN REPORT TO ANALY Dhillon
--- NOTE | 2020-01-25 16:41 | NUR ---
SPOKE WITH DR. KEY AT THIS TIME. DISCUSSED PT PLAN AND THAT ACCORDING TO PHYSICAL THERAPY, SNF IS NEEDED FOR DC. PLAN PER DR. FORD IS FOR PT TO BE HERE A FEW MORE DAYS. WILL MAKE PT AWARE. PT ALSO HAS HAD MINIMAL OUTPUT. BLADDER SCAN SHOWED 250ML. DR. KEY MADE AWARE OF THIS, ORDER FOR PUSHING PO FLUIDS. WILL CTM PT STATUS.
--- NOTE | 2020-01-25 16:51 | NUR ---
SPOKE WITH PT KEITH AT THIS TIME ABOUT PT PLAN OF CARE.
--- NOTE | 2020-01-25 19:40 | NUR ---
SUMMARY: NO CHANGE SINCE RECIEVED REPORT. PT ORIENTED TO PERSON AND SITUATION, NEEDED REMINDER OF YEAR AND PLACE. CSM INTACT TO L ARM, PT DENIED ANY PAIN. DID CALL DR. CLAY TO VERIFY IM ROCEPHIN ORDER, ORDER SWITCHED TO IV. NO ACUTE SAFETY CONCERNS. BED ALARM ON. REPORT GIVEN TO SOFIYA RN
[2020-01-26 05:23] LABS: BASOPHILS ABSOLUTE AUTO 0.03 K/mm3 (0.00-0.23); BASOPHILS PERCENT AUTO 0 % (0-2); EOSINOPHILS ABSOLUTE AUTO 0.11 K/mm3 (0.00-0.68); EOSINOPHILS PERCENT AUTO 1 % (0-6); Hematocrit 34.8 % (33.0-51.0); Hemoglobin 11.5 g/dL (11.5-16.0); IMMATURE GRAN ABSOLUTE AUTO 0.02 K/mm3 (0.00-0.10); IMMATURE GRAN PERCENT AUTO 0 % (0-1); LYMPHOCYTES ABSOLUTE AUTO 0.81 K/mm3 (0.84-5.20); LYMPHOCYTES PERCENT AUTO 10 % (21-46); MONOCYTES ABSOLUTE AUTO 0.43 K/mm3 (0.16-1.47); MONOCYTES PERCENT AUTO 5 % (4-13); Mean Corpuscular HGB 30.3 pg (26.0-34.0); Mean Corpuscular Volume 92 fL (80-100); Mean Platelet Volume 11.2 fL (9.1-12.4); NEUTROPHILS PERCENT AUTO 83 % (41-73); Platelet Count 71 K/mm3 (150-400); RDW Coefficient Variation 13.4 % (11.7-14.2); RDW Standard Deviation 45.5 fL (35.1-46.3); Red Blood Cell Count 3.79 M/mm3 (3.80-5.20)
--- NOTE | 2020-01-26 05:48 | NUR ---
SHIFT SUMMARY PATIENT VERY PLEASANT BUT CONFUSED AND SLOW TO SPEAK. SHE SLEPT MOST OF THE NIGHT. HAD PAIN IN HER LEFT SHOULDER WHICH WAS MEDICATED PER EMAR. IV PATENT AND INFUSING. BED IN LOWEST POSITION WITH WHEELS LOCKED AND ALARM ON. CALL LIGHT WITHIN REACH. REPORT GIVEN TO ONCOMING RN.
[2020-01-26 05:50] LABS: Magnesium, Blood 2.2 mg/dL (1.6-2.4)
[2020-01-26 05:55] LABS: Bilirubin, Total 0.5 mg/dL (0.1-1.0); Bun/Creatinine Ratio 22.4 (12.0-20.0); Calcium, Blood 8.6 mg/dL (8.5-10.1); Creatinine, Blood 1.34 mg/dL (0.40-1.00); Potassium, Blood 3.8 mmol/L (3.5-5.5)
--- NOTE | 2020-01-26 20:24 | NUR ---
SHIFT SUMMARY- PT ALERT TO SELF. PT HAS BEEN ALERT AND PLEASENTLY CONFUSED T/O THE SHIFT, HOWEVER AT THE END OF THE SHIFT PT WAS NO LONGER PLEASENTLY CONFUSED SHE SEEMED A LITTLE PARANOID, PT REFUSED TO TAKE HER EVENING DOSE OF EXELON. PER PT SPOUSE GETTING HER TO TAKE HER MEDICATIONS AT HOME CAN BE DIFFICULT SOMETIMES. PHYSICAL THERAPY IS RECOMENDING SNF AT DISCHARGE. PT SPOUSE CALLED AND IS IN FAVOR OF PT DISCHARGE TO SNF.
[2020-01-27 06:22] LABS: BASOPHILS ABSOLUTE AUTO 0.04 K/mm3 (0.00-0.23); BASOPHILS PERCENT AUTO 1 % (0-2); EOSINOPHILS ABSOLUTE AUTO 0.14 K/mm3 (0.00-0.68); EOSINOPHILS PERCENT AUTO 2 % (0-6); Hematocrit 34.6 % (33.0-51.0); Hemoglobin 11.4 g/dL (11.5-16.0); IMMATURE GRAN ABSOLUTE AUTO 0.02 K/mm3 (0.00-0.10); IMMATURE GRAN PERCENT AUTO 0 % (0-1); LYMPHOCYTES ABSOLUTE AUTO 1.39 K/mm3 (0.84-5.20); LYMPHOCYTES PERCENT AUTO 16 % (21-46); MONOCYTES ABSOLUTE AUTO 0.57 K/mm3 (0.16-1.47); MONOCYTES PERCENT AUTO 7 % (4-13); Mean Corpuscular HGB 29.9 pg (26.0-34.0); Mean Corpuscular HGB Conc 32.9 g/dL (31.5-36.5); Mean Corpuscular Volume 91 fL (80-100); Mean Platelet Volume 11.5 fL (9.1-12.4); NEUTROPHILS ABSOLUTE AUTO 6.48 K/mm3 (1.96-9.15); NEUTROPHILS PERCENT AUTO 75 % (41-73); Platelet Count 78 K/mm3 (150-400); RDW Coefficient Variation 13.1 % (11.7-14.2); RDW Standard Deviation 43.7 fL (35.1-46.3); Red Blood Cell Count 3.81 M/mm3 (3.80-5.20); White Blood Cell Count 8.64 K/mm3 (4.00-11.30)
[2020-01-27 06:43] LABS: Bun/Creatinine Ratio 19.1 (12.0-20.0); Calcium, Blood 8.8 mg/dL (8.5-10.1); Creatinine, Blood 1.15 mg/dL (0.40-1.00)
--- NOTE | 2020-01-27 07:00 | NUR ---
ASSUMED CARE OF PT- BEDSIDE REPORT COMPLETED. PT ALERT AND ORIENTED TO SELF. NO S&S OF PAIN AT THIS TIME. PT IN BED CALL LIGHT IN REACH, BED ALARM FOR SAFETY. PT SLING IS IN PLACE SLIGHT ADJUSTMENT PT HAD MOVED THE SLING. PT IS PLEASENTLY CONFUSED AGAIN THIS MORNING NO SIGNS OF PARANOIA AT THIS TIME.
--- NOTE | 2020-01-27 07:27 | NUR ---
SHIFT SUMMARY PATIENT CONFUSED OVERNIGHT BUT SLEPT WELL. PATIENT'S CALLED TO CHECK ON HER AND THIS RN ASSISTED THE PATIENT TO ANSWER THE PHONE SO HE COULD TALK TO HER. IV PATENT AND INFUSING. BED IN LOWEST POSITION WITH WHEELS LOCKED AND ALARM ON. CALL LIGHT WITHIN REACH. REPORT GIVEN TO ONCOMING RN.
--- NOTE | 2020-01-27 17:28 | NUR ---
SHIFT SUMMARY- PT HAS HAD NO ACUTE CHANGE T/O THE SHIFT. NO S&S OF PAIN OR DISTRESS PT DENIES N/T IN THE LEFT AMANDEEP HAND PERIPHERAL PULSES STRONG AND EQUAL BILATERALLY. PT DENIES PAIN. STAFF HAVE REMINDED HER THAT SHE DOESNT WANT TO MOVE HER ARM BECAUSE IT IS BROKEN, EACH TIME SHE IS SUPRISED. PT HAS SPENT MUCH OF THE DAY WATCHING TV WITH A CHILD LIKE FASCINATION. PT IS VERY CONFUSED WHEN SHE TALKS TO HER ON THE PHONE SHE WILL SOMETIMES HANG UP BEFORE THE CONVERSATION IS OVER BECAUSE SHE SEEMS TO HAVE FORGOTTEN SHE WAS TALKING TO HIM. SPOUSE CALLED AND SPOKE TO NURSING STAFF TODAY; HE IS CONCERNED ABOUT THE RAPID DECLINE OF THE PT (COGNITIVELY). SPOUSE SEEMS TO BE MOURNING THE LOSS OF HIS HE KNOWS HER; SPOKE TO PALLIATIVE CARE RN MERA Marx ABOUT THIS, WITH THE LOCK DOWN AND NO VISITORS IT IS DIFFICULT TO DETERMINE HOW TO PROVIDE COMFORT OR SUPPORT, OR TO HELP HIM WITH HIS STRUGGLES TO COPE WITH THE PT DECLINE. PT APPEARS HAPPY AND COMFORTABLE AT THIS TIME, IS SITTING UP IN HER CHAIR, CHAIR ALARM ON FOR SAFETY, CALL LIGHT IN REACH, PT DOES NOT CALL. PT IS INCONTINENT, ATTEND IN PLACE. WHEN STAFF STAND HER TO TRANSFER TO THE CHAIR SOON LANE CARE IS COMPLETED PT WILL VOID, COMODE PRIOR TO UP IN CHAIR IS RECOMENDED.
--- NOTE | 2020-01-27 18:30 | NUR ---
CALED DR CLAY. PT FORGOT HER ARM WAS BROKEN AND REMOVED HER RUSS WRAP AND TOWEL SPLINT. DR CLAY INSTRUCTED THIS RN TO CALL DR KEARNS IF THERAPEUTIC RIDING INSTRUCTOR CANT STABILIZE. CALLED ANSWERING SERVICE FOR DR KEARNS, DR QUINN IS ON. RECIEVED ORDER FOR STAT HUMERUS AND SHOULDER X RAYS. INSTRUCTED TO KEEP THE PT IN THE SLING. PASSED ON TO NIGHT RN IN REPORT.
--- NOTE | 2020-01-28 07:02 | NUR ---
SHIFT SUMMARY PATIENT BECOMING INCREASINGLY CONFUSED. SEEING THINGS ON THE TV AND THINKS THAT THEY PERTAIN TO HER IN REAL LIFE ACTUAL EVENTS.IV PATENT AND FLUSHED. SPOKE WITH DR QUINN REGARDING THE CONDITION OF THE PATIENT'S LEFT ARM AND SHOULDER, HE SAID THAT SOMEONE FROM HIS OFFICE WILL BE COMING TO SEE THE PATIENT TODAY. BED IN LOWEST POSITION WITH WHEELS LOCKED AND ALRM ON. CALL LIGHT WITHIN REACH. REPORT GIVEN TO ONCOMING RN.
--- NOTE | 2020-01-28 17:08 | NUR ---
SUMMARY PT IS A/O X 1-2, PLEASANT HOWEVER CONFUSED. HER L SHOULDER CONTINUES SOMEWHAT SWOLLEN, BRUISED. SHE STATE NO PAIN @ REST, STATE SOME PAIN WITH MOVEMENTS HOWEVER HAS DECLINED PRN FOR PAIN. DR PRESCOTT IN TO SEE HER THIS AM, STATE NO SURG TODAY, ORDER REG DIET, NPO AFTER MN FOR SURG TOMORROW AFTER 1230. DR CURIEL IN TO SEE PT THIS AFTERNOON, PLACE ORDERS FOR CSF TESTS BY ANESTHISIOLOGIST TOMORROW DURING SURG, XOCHILT RN & NURSE EDDIE NOTIFIED. VSS. L ARM HAS BEEN IN SLING T/O DAY, SUPPORTING w PILLOWS. PT CALLED, GIVEN UPDATE.
--- NOTE | 2020-01-29 00:44 | NUR ---
NPO AT THIS TIME FOR SURGERY SCHEDULED THIS AM. RESTING QUIETLY. CALL LIGHT IN REACH. LEFT ARM REMAINS IMMOBILIZED WITH SLING.
--- NOTE | 2020-01-29 04:23 | NUR ---
PT HAS BEEN NPO SINCE MIDNIGHT FOR AM PROCEDURE WITH LEFT ARM. HAS BEEN RESTING QUIETLY WITH FEW INTERRUPTIONS SINCE HS. CALL LIGHT IN REACH.
[2020-01-29 05:07] LABS: BASOPHILS ABSOLUTE AUTO 0.04 K/mm3 (0.00-0.23); BASOPHILS PERCENT AUTO 1 % (0-2); EOSINOPHILS PERCENT AUTO 3 % (0-6); Hematocrit 34.7 % (33.0-51.0); Hemoglobin 11.6 g/dL (11.5-16.0); IMMATURE GRAN ABSOLUTE AUTO 0.02 K/mm3 (0.00-0.10); IMMATURE GRAN PERCENT AUTO 0 % (0-1); LYMPHOCYTES PERCENT AUTO 15 % (21-46); MONOCYTES ABSOLUTE AUTO 0.39 K/mm3 (0.16-1.47); MONOCYTES PERCENT AUTO 6 % (4-13); Mean Corpuscular HGB Conc 33.4 g/dL (31.5-36.5); Mean Corpuscular Volume 90 fL (80-100); Mean Platelet Volume 10.9 fL (9.1-12.4); NEUTROPHILS ABSOLUTE AUTO 5.24 K/mm3 (1.96-9.15); NEUTROPHILS PERCENT AUTO 76 % (41-73); Platelet Count 107 K/mm3 (150-400); RDW Coefficient Variation 13.5 % (11.7-14.2); RDW Standard Deviation 43.7 fL (35.1-46.3); Red Blood Cell Count 3.87 M/mm3 (3.80-5.20); White Blood Cell Count 6.89 K/mm3 (4.00-11.30)
[2020-01-29 05:24] LABS: Bun/Creatinine Ratio 18.8 (12.0-20.0); Creatinine, Blood 1.17 mg/dL (0.40-1.00); Potassium, Blood 3.4 mmol/L (3.5-5.5)
--- NOTE | 2020-01-29 11:09 | NUR ---
PT NPO FOR SURG TODAY. DR PRESCOTT STOOPED TO SEE HER THIS AM, REASSURE HER. DR HAYDEN IN TO SEE HER NOTIFIED PT WILL TRANSFER TO SURG FLOOR AFTER PROCEDURE. PT IS PLEASANT, CALM HOWEVER SOMEWHAT CONFUSED/FORGETFUL. SHE REQUIRE SOME REORIENT TO TYPE OF SURG, HX DEMENTIA. PARAPROFESSIONAL EDUCATION ASSISTANT UP TO TAKE PT TO PREOP 1130. REPORT CALLED TO KEVIN SHIFT SUPERINTENDENT CAUSTIC CRESYLATE.
--- NOTE | 2020-01-29 11:49 | NUR ---
DR LOPEZ SAW PT IN ROOM. ALL PAPERWORK IN ORDER. SPOKE TO PT , HE WILL BEL AVAILABLE FOR CONSENT WITH ANESTHESIOLOGIST. PT HAS LOWGRADE FEVER AND NEEDS TO BE ENCOURAGED TO TAKE DEEP BREATHS O2 SAT MAINTAINS 89-90% WITHOUT REMINDER. ENCOURAGERD DBC. WILL PLACE ON 2L NC FOR SUPPORT. PT STATES SHE HAS NO PAIN WHEN LEFT ARM IS NOT MOVED.
--- NOTE | 2020-01-29 11:52 | NUR ---
PT ATATES SHE USES 2LNC DURING THE DAY INTERMITTENTLY. WILL PASS ON INFORMATION TO MED FLOOR RN. History, Chart, Medications and Allergies reviewed before start of procedure.Lungs clear T/O to Auscultation. Patient confirms NPO status and agrees with scheduled surgery. REPORT FROM BONILLA MENDOSA RN MED FLOOR.
--- NOTE | 2020-01-29 12:20 | NUR ---
PT RING FOUND ON R HAND PLACED IN ZIPLOC WITH STICKER OF INFO ON IT.
--- NOTE | 2020-01-29 12:39 | NUR ---
DR LOMBARDI IN TO SPEAKE TO PT AND REGARDING LUMBAR PUNCTURE. BACK ASSESSED. DR AGUILAR SPEAKING WITH PATINT. WILL GET ON THE PHONE.
[2020-01-29 13:39] LABS: Automated CSF WBC Count 0.001 K/mm3 (0-5); WBC Count, CSF 1 /mm3 (0-5)
[2020-01-29 14:34] LABS: Appearance, CSF Clear (Clear); Color, CSF No Color (No Color)
[2020-01-29 14:36] LABS: RBC Count, CSF 0 /mm3 (0-0)
[2020-01-29 14:49] LABS: Cryptococcus Neoformans/Gattii Not Detected (NOT DETECT); Enterovirus Not Detected (NOT DETECT); Escherichia Coli K1 Not Detected (NOT DETECT); Haemophilus Influenza Not Detected (NOT DETECT); Herpes Simplex Virus 1 Not Detected (NOT DETECT); Herpes Simplex Virus 2 Not Detected (NOT DETECT); Human Herpesvirus 6 Not Detected (NOT DETECT); Human Parechovirus Not Detected (NOT DETECT); Listeria Monocytogenes Not Detected (NOT DETECT); Neisseria Meningitidis Not Detected (NOT DETECT); Streptococcus Agalactiae Not Detected (NOT DETECT); Streptococcus Pneumoniae Not Detected (NOT DETECT); Varicella Zoster Virus Not Detected (NOT DETECT)
--- NOTE | 2020-01-29 18:45 | NUR ---
SHIFT SUMMARY PT A&OX1-2, PLEASANT & COOPERATIVE, VSS, S/P L SHOULDER NAILING, SURGICAL BANDAGE CDI, POLAR WALLACE ON. PAIN MANAGED WITH 5 MG NORCO AND TORADOL. ROULA PO, DENIES N&V. WILL REPORT TO ONCOMING NOC RN.
[2020-01-30 04:09] LABS: HIV SCREEN 4TH GENERATION WRFX Non Reactive (Non Reactive)
[2020-01-30 04:20] LABS: BASOPHILS ABSOLUTE AUTO 0.04 K/mm3 (0.00-0.23); BASOPHILS PERCENT AUTO 1 % (0-2); EOSINOPHILS ABSOLUTE AUTO 0.22 K/mm3 (0.00-0.68); EOSINOPHILS PERCENT AUTO 3 % (0-6); Hematocrit 30.5 % (33.0-51.0); Hemoglobin 10.2 g/dL (11.5-16.0); IMMATURE GRAN ABSOLUTE AUTO 0.03 K/mm3 (0.00-0.10); IMMATURE GRAN PERCENT AUTO 0 % (0-1); LYMPHOCYTES ABSOLUTE AUTO 0.85 K/mm3 (0.84-5.20); LYMPHOCYTES PERCENT AUTO 11 % (21-46); MONOCYTES ABSOLUTE AUTO 0.41 K/mm3 (0.16-1.47); MONOCYTES PERCENT AUTO 5 % (4-13); Mean Corpuscular HGB 29.9 pg (26.0-34.0); Mean Corpuscular HGB Conc 33.4 g/dL (31.5-36.5); Mean Corpuscular Volume 89 fL (80-100); Mean Platelet Volume 11.1 fL (9.1-12.4); NEUTROPHILS ABSOLUTE AUTO 6.14 K/mm3 (1.96-9.15); NEUTROPHILS PERCENT AUTO 80 % (41-73); Platelet Count 106 K/mm3 (150-400); RDW Coefficient Variation 13.6 % (11.7-14.2); RDW Standard Deviation 43.4 fL (35.1-46.3); Red Blood Cell Count 3.41 M/mm3 (3.80-5.20); White Blood Cell Count 7.69 K/mm3 (4.00-11.30)
[2020-01-30 04:40] LABS: Bun/Creatinine Ratio 17.1 (12.0-20.0); Calcium, Blood 8.2 mg/dL (8.5-10.1); Creatinine, Blood 1.29 mg/dL (0.40-1.00); Potassium, Blood 3.6 mmol/L (3.5-5.5)
--- NOTE | 2020-01-30 05:50 | NUR ---
Patient has been able to sleep for several hours tonight. Attempted to get pt OOB to BSC at around 2400. patient was very difficult to reorient to the task at hand. patient was able to sit and dangle for approximately 20 mins. patient is incontinent of urine. rosio hose and SCD's on T/O night. patient is cooperative with all care. oriented to self. Polar pack to lt shoulder, no bleed through on bulky shoulder dressing. lt forearm elevated on pillows through out the night. no acute changes.
--- NOTE | 2020-01-30 14:57 | NUR ---
DISCHARGE: REPORT GIVEN TO ANALY GARCIA AT [facility] AT THIS TIME. PT IS AWARE OF PT TRANFER, THIS RN SPOKE WITH HIM ALONG WITH SPINNING BATH PERSON HERNESTO. PT SENT WITH PACKET ALONG WITH EXTRA DRESSING CHANGE SUPPLIES (ABD AND FOAM TAPE), SCRIPT INSIDE PACKET. PLAN TO CONTINUE IV ABX, IV NOT DC'D. PT LEFT UNIT AT ABOUT 1450 VIA WHEELCHAIR WITH KAREN BENSON.
--- NOTE | 2020-02-01 08:55 | NUR ---
02/01/20 0855 Albertina Wagner VERIFICATIONS: EDIT CHART.
== END 2020-01-30 14:45 | DRG 492 ==
LOC: ER 00:06 → MEDS 00:07 → SURS 01-29 11:25
PROVIDERS: Emergency Medicine; Internal Medicine; Internal Medicine Infectious Disease; Orthopaedic Surgery; ADMIT Internal Medicine
PROC: 009U3ZX Drainage of Spinal Canal, Percutaneous Approach, Diagnostic (ICD-10-PCS; 2020-01-29)
PROC: 30233R1 Transfusion of Nonautologous Platelets into Peripheral Vein, Percutaneous Approach (ICD-10-PCS; 2020-01-29)
PROC: 0PSG06Z Reposition Left Humeral Shaft with Intramedullary Internal Fixation Device, Open Approach (ICD-10-PCS; principal; 2020-01-29 12:30)
DX: S42.212A Unspecified displaced fracture of surgical neck of left humerus, initial encounter for closed fracture (principal); J96.01 Acute respiratory failure with hypoxia; A52.9 Late syphilis, unspecified; F03.90 Unspecified dementia, unspecified severity, without behavioral disturbance, psychotic disturbance, mood disturbance, and anxiety; D69.6 Thrombocytopenia, unspecified; I12.9 Hypertensive chronic kidney disease with stage 1 through stage 4 chronic kidney disease, or unspecified chronic kidney disease; N18.3 Chronic kidney disease, stage 3 (moderate); J44.9 Chronic obstructive pulmonary disease, unspecified; W19.XXXA Unspecified fall, initial encounter; Z88.0 Allergy status to penicillin; Z91.81 History of falling; R26.9 Unspecified abnormalities of gait and mobility; Z87.891 Personal history of nicotine dependence; Z86.73 Personal history of transient ischemic attack (TIA), and cerebral infarction without residual deficits; T40.605A Adverse effect of unspecified narcotics, initial encounter
CPT/HCPCS: 23605; 36415; 70450; 71045; 72125; 73020; 73030; 73060; 73070; 73200; 76000; 76377; 80048; 80053; 83735; 84157; 84484; 85025; 86592; 86780; 87389; 87483; 89051; 93005; 93010; 96374-59; 97110; 97112; 97116; 97163; 97166; 97530; 97535; 99152; 99285-25; A9270; A9270-GY; C1713; C1769; J0696; J1170; J1650; J1885; J2250; J2370; J2704; J2710; J3010; J3370; J7030; J7120

== ENCOUNTER 2020-04-17 13:25 | Emergency (ER) | payer MEDICARE ==
[~2020-04-17] VITALS: Ht 165.1 cm; Wt 63.5 kg
[~2020-04-17 13:25] MED LIST changes: +LEVFLO500 PO; +Percocet 5-3251 EACH PO; +RIVASTIGMINE1.5 MG PO
[2020-04-17 14:01] LABS: BASOPHILS ABSOLUTE AUTO 0.04 K/mm3 (0.00-0.23); BASOPHILS PERCENT AUTO 1 % (0-2); EOSINOPHILS ABSOLUTE AUTO 0.15 K/mm3 (0.00-0.68); EOSINOPHILS PERCENT AUTO 3 % (0-6); Hematocrit 42.9 % (33.0-51.0); IMMATURE GRAN ABSOLUTE AUTO 0.02 K/mm3 (0.00-0.10); IMMATURE GRAN PERCENT AUTO 0 % (0-1); LYMPHOCYTES ABSOLUTE AUTO 1.15 K/mm3 (0.84-5.20); LYMPHOCYTES PERCENT AUTO 20 % (21-46); MONOCYTES ABSOLUTE AUTO 0.35 K/mm3 (0.16-1.47); MONOCYTES PERCENT AUTO 6 % (4-13); Mean Corpuscular HGB 29.7 pg (26.0-34.0); Mean Corpuscular HGB Conc 32.6 g/dL (31.5-36.5); Mean Corpuscular Volume 91 fL (80-100); NEUTROPHILS ABSOLUTE AUTO 4.09 K/mm3 (1.96-9.15); NEUTROPHILS PERCENT AUTO 71 % (41-73); Platelet Count 80 K/mm3 (150-400); RDW Coefficient Variation 13.8 % (11.7-14.2); RDW Standard Deviation 46.1 fL (35.1-46.3); Red Blood Cell Count 4.71 M/mm3 (3.80-5.20)
[2020-04-17 14:21] LABS: Alanine Aminotransfer (ALT/SGP 23 U/L (12-78); Albumin, Blood 3.5 g/dL (3.4-5.0); Alk Phos 147 U/L (50-136); Anion Gap 3 mmol/L (6-16); Aspartate Aminotrans (AST/SGOT 22 U/L (12-37); Bilirubin, Total 0.4 mg/dL (0.1-1.0); Blood Urea Nitrogen 23 mg/dL (8-24); Bun/Creatinine Ratio 19.5 (12.0-20.0); CO2, Blood 31 mmol/L (21-32); Calcium, Blood 8.2 mg/dL (8.5-10.1); Chloride, Blood 108 mmol/L (98-108); Creatinine, Blood 1.18 mg/dL (0.40-1.00); Globulin, Blood 3.4 g/dL (2.2-4.0); Glomerular Filtration Rate 48 (60-); Glucose, Blood 91 mg/dL (70-99); Potassium, Blood 3.5 mmol/L (3.5-5.5); Sodium, Blood 142 mmol/L (136-145); Total Protein, Blood 6.9 g/dL (6.4-8.2); Troponin I <0.015 ng/mL (0.000-0.040)
[2020-04-17] MEDS ORDERED: CLOP75 PO (15:00)
== END 2020-04-17 15:11 | disposition home or self-care (01) ==
LOC: ER 13:25
PROVIDERS: Emergency Medicine
DX: G45.9 Transient cerebral ischemic attack, unspecified (principal); I48.91 Unspecified atrial fibrillation; F03.90 Unspecified dementia, unspecified severity, without behavioral disturbance, psychotic disturbance, mood disturbance, and anxiety; I10 Essential (primary) hypertension; J45.909 Unspecified asthma, uncomplicated; Z86.73 Personal history of transient ischemic attack (TIA), and cerebral infarction without residual deficits; Z87.891 Personal history of nicotine dependence
CPT/HCPCS: 70450; 80053; 84484; 85025; 93005; 93010; 99285-25; A9270-GY

== ENCOUNTER 2020-07-21 12:57 | Inpatient (IN) | payer MEDICARE ==
[~2020-07-21] VITALS: Ht 165.1 cm; Wt 70.8 kg
[2020-07-21 13:48] LABS: BASOPHILS ABSOLUTE AUTO 0.04 K/mm3 (0.00-0.23); BASOPHILS PERCENT AUTO 0 % (0-2); EOSINOPHILS ABSOLUTE AUTO 0.02 K/mm3 (0.00-0.68); EOSINOPHILS PERCENT AUTO 0 % (0-6); Hemoglobin 14.7 g/dL (11.5-16.0); IMMATURE GRAN ABSOLUTE AUTO 0.03 K/mm3 (0.00-0.10); IMMATURE GRAN PERCENT AUTO 0 % (0-1); LYMPHOCYTES ABSOLUTE AUTO 0.54 K/mm3 (0.84-5.20); LYMPHOCYTES PERCENT AUTO 5 % (21-46); MONOCYTES PERCENT AUTO 3 % (4-13); Mean Corpuscular HGB 30.4 pg (26.0-34.0); Mean Corpuscular HGB Conc 32.7 g/dL (31.5-36.5); Mean Corpuscular Volume 93 fL (80-100); Mean Platelet Volume 10.9 fL (9.1-12.4); NEUTROPHILS ABSOLUTE AUTO 10.74 K/mm3 (1.96-9.15); NEUTROPHILS PERCENT AUTO 91 % (41-73); Platelet Count 123 K/mm3 (150-400); RDW Coefficient Variation 13.3 % (11.7-14.2); RDW Standard Deviation 45.6 fL (35.1-46.3); Red Blood Cell Count 4.84 M/mm3 (3.80-5.20); White Blood Cell Count 11.77 K/mm3 (4.00-11.30)
[2020-07-21 13:59] LABS: Alanine Aminotransfer (ALT/SGP 15 U/L (12-78); Albumin, Blood 3.8 g/dL (3.4-5.0); Albumin/Globulin Ratio 0.9 (0.8-1.8); Alk Phos 145 U/L (50-136); Anion Gap 5 mmol/L (6-16); Aspartate Aminotrans (AST/SGOT 12 U/L (12-37); Bilirubin, Total 1.2 mg/dL (0.1-1.0); Blood Urea Nitrogen 32 mg/dL (8-24); Bun/Creatinine Ratio 17.3 (12.0-20.0); CO2, Blood 30 mmol/L (21-32); Calcium, Blood 9.4 mg/dL (8.5-10.1); Chloride, Blood 105 mmol/L (98-108); Creatinine, Blood 1.85 mg/dL (0.40-1.00); Globulin, Blood 4.1 g/dL (2.2-4.0); Glomerular Filtration Rate 28 (60-); Glucose, Blood 129 mg/dL (70-99); Potassium, Blood 3.8 mmol/L (3.5-5.5); Sodium, Blood 140 mmol/L (136-145); Total Protein, Blood 7.9 g/dL (6.4-8.2); Troponin I <0.015 ng/mL (0.000-0.040)
[2020-07-21 14:01] LABS: International Normalized Ratio 0.99; Prothrombin Time Results 10.6 Sec (9.7-11.5)
[2020-07-21] MEDS ORDERED: ZOLOFT100 M1 PO (14:04)
[2020-07-21] MEDS ORDERED: QUETIAPINE FUMA25 MG PO (14:04)
[2020-07-21] MEDS ORDERED: RIVASTIGMINE4.5 MG PO (14:05)
[2020-07-21] MEDS ORDERED: FAMO10 PO (14:05)
[2020-07-21] MEDS ORDERED: PLAVIX75 MG PO (14:05)
[2020-07-21] MEDS ORDERED: IRBE150 PO (14:06)
[2020-07-21] MEDS ORDERED: AMLODIPINE BESYL5 MG PO (15:49)
[2020-07-21 16:05] LABS: Source, Urine Clean Catch
[2020-07-21 16:08] LABS: Appearance, Urine Hazy (Clear); Bilirubin, Urine Neg (Neg); Blood, Urine 3+ (Neg); Color, Urine Yellow (P-Yellow); Glucose Qualitative, Urine Neg (Neg); Ketones, Urine Neg (Neg); Leukocyte Esterase, Urine 3+ (Neg); Nitrite, Urine Pos (Neg); Protein, Urine 3+ (Neg); Urobilinogen, Urine NORM (Normal)
[2020-07-21 16:25] LABS: White Blood Cells, Urine TNTC /hpf (0-5)
[2020-07-21 16:26] LABS: Bacteria Mod /hpf; Red Blood Cells, Urine 0-2 /hpf (0-2); Squamous Epithelial Cells Few /hpf (Few)
--- NOTE | 2020-07-21 19:34 | NUR ---
SHIFT SUMMARY REPORT RECEIVED FROM [facility] AT 1650.
--- NOTE | 2020-07-22 05:09 | NUR ---
SHIFT SUMMARY ALERT TO SELF. ABLE TO ANSWER SIMPLE QUESTIONS. COOPERATIVE WITH CARE. NO C/O OR S/S OF PAIN/DISCOMFORT. R SIDED DEFICITS CONTINUE TO IMPROVE. REMAINED NPO T/O NIGHT; ORAL CARE COMPLETED. WILL HAVE ST/OT/PT CONSULTS. APPEARED TO REST OFF AND ON T/O NIGHT. FLUIDS CONTINUED TO INFUSED WITHOUT COMPLICATIONS. NO ACUTE CHANGES NOTED OVERNIGHT. BED REAMINED IN LOWEST POSITION; ALARM ON. CALL LIGHT WITHIN REACH. WCTM. REPORT TO ONCOMING RN.
[2020-07-22 05:33] LABS: Hematocrit 38.4 % (33.0-51.0); Hemoglobin 12.5 g/dL (11.5-16.0); Mean Corpuscular HGB 29.8 pg (26.0-34.0); Mean Corpuscular HGB Conc 32.6 g/dL (31.5-36.5); Mean Corpuscular Volume 91 fL (80-100); Mean Platelet Volume 10.4 fL (9.1-12.4); Platelet Count 115 K/mm3 (150-400); RDW Coefficient Variation 13.4 % (11.7-14.2); White Blood Cell Count 7.58 K/mm3 (4.00-11.30)
[2020-07-22 05:56] LABS: Bun/Creatinine Ratio 20.4 (12.0-20.0); Creatinine, Blood 1.47 mg/dL (0.40-1.00); Potassium, Blood 3.6 mmol/L (3.5-5.5)
--- NOTE | 2020-07-22 17:31 | NUR ---
Pt resting in bed upon arrival. Abhishek at bedside. Pt is pleasantly confused and appears comfortable with no S/S of distress at this time. Pt currently hospitalized for stroke. Pt's medical history and comorbidities include: CKD3, Dementia-Lewy Body, HTN, Thrombocytopenia, CVA, COPD, Asthma, Acute Hypoxic Respiratory Failure, and Tertiary Syphilis. Engaged in therapeutic discussion regarding advanced care planning. Abhishek reports being Pt's primary caregiver and has reached the point to where he providing care 24 hours a day. Before this hospital stay Pt was able to ambulate with the assistance of Abhishek and has a shuffling gait. Pt is incontinent of bowel and bladder. Pt also requires assistance with bathing and dressing. Abhishek reports being quite some time since Pt has had any meaningful conversation. Abhishek reports this being the 3rd hospitalization in the last year with each time Pt declining with her dementia. Abhishek reports Pt has been diagnosed with Lewy Body Dementia. Educated Abhishek on disease process including trjectory of disease. Discussed the importance of developing multiple plans with PCP and Neurologist as disease process takes its coarse. Discussed hospice as an option. Educated on hospice philosophy with V/U made by Abhishek. Abhishek states hospice would be beneficial for Pt but would like Pt to go to SNF first to see if she can improve her functionality first. Educated on life sustaining treatments including implications and risk factors with V/U made by Abhishek. Abhishek is agreeable to complete a new POLST for Pt. Discussed options and each section to be completed. Assisted Abhishek with completing POLST and Pt's wishes are for DNR and Limited Treatment. Abhishek reports Pt would not want CPR or intubation. Abhishek expresses appreciation of visit and reports no other concerns at this time. PPS 40% ADLs 5/6 FAST 7C Pt appears appropriate for hospice if family chooses this option. Spoke with Bedside RN Wendie and discussed case. Spoke with Dr Medina and discussed case. Dr Medina will change Pt's code status to DNR and sign POLST in the AM during rounds. Palliative Care will remain available.
--- NOTE | 2020-07-22 18:17 | NUR ---
Initial spiritual care note: Pt was alone in room. She smiled broadly and greeted me as if we had known eachother for years. She is clearly confused, very pleasant, smiles easily and appeared limited to one or two word answers. She denied pain/fear. She did not appear to know she was hospitalized. I provided prayer and easy companionship. Comforted through touch and gace assurance of love. She appeared to enjoy these interventions. I will remain available to pt and family.
--- NOTE | 2020-07-22 19:33 | NUR ---
SHIFT SUMMARY CLEARED BY CUPROUS CHLORIDE OPERATOR FOR [facility] SOFT DIET WITH NECTAR LIQUIDS. PATIENT DID WELL WITH PUDDING AND APPLESAUCE BUT APPEARED TO HAVE A HARD TIME SWALLOWING SPAGHETTI AND FRUIT (GRIMACING/SWALLOWING MULTIPLE TIMES IN A ROW). UNABLE TO VOCALIZE/ANSWER QUESTIONS REGARDING SWALLOW. DOWNGRADED TO PUREE DIET.
--- NOTE | 2020-07-23 04:35 | NUR ---
SHIFT SUMMARY PT HAS HAD NO ACUTE CHANGES THIS SHIFT, A&O TO SELF, UNABLE TO APPROPIATELY ANSWER QUESTIONS, HAS NOT BEEN VERBAL W/THIS RN, REPOS Q2, SLEPT T/O THE NIGHT & AT THIS TIME, CALL LIGHT IN REACH, WILL CONT TO MONITOR UNTIL REPORT GIVEN TO DAY RN.
[2020-07-23 16:28] LABS: Bicarbonate Venous 27.9 mmol/L (24.0-30.0); PCO2 Venous 44.7 mmHg (38-42); PO2 Venous 44.3 mmHg (38-42); pH Blood Venous 7.43 (7.34-7.37)
--- NOTE | 2020-07-23 16:53 | NUR ---
BP 170/80. ORDER FOR HYDRALAZINE PLACED. ORDER FROM DR. MIR TO ADMINISTER NIGHTTIME DOSE OF NORVASC NOW INSTEAD OF HYDRALAZINE.
--- NOTE | 2020-07-23 18:56 | NUR ---
PATIENT IS ALERT. SHE IS ORIENTED TO SELF. HER VISITED WITH HER TODAY FOR A WHILE AND ASSISTED WITH HER CARE. SHE IS A 2 PERSON ASSIST TO CHANGE IN BED. SHE IS ON 1L O2 VIA NC. PLAN IS TO DC TO SNF TOMORROW. WILL CONTINUE TO MONITOR
--- NOTE | 2020-07-24 05:42 | NUR ---
PATIENT HAD A RESTFUL NIGHT. 2 EPISODES OF INCONTINENCE IN BRIEFS. ALERT AND VERY PLEASANT AND COOPERATIVE. VIOLA DENIED PAIN EACH TIME ASKED AND EXHIBITED NO SYMPTOMS OF DISCOMFORT. CONTINUES TO TAKE CRUSHED MEDS WELL WITH APPLESAUCE WHEN FOLLOWED BY NECTAR THICK CRANBERRY JUICE.
--- NOTE | 2020-07-24 17:18 | NUR ---
SHIFT SUMMARY PATIENT ALERT TO SELF THIS SHIFT. PATIENT WORKED WITH PT/OT THIS SHIFT. PATIENT'S SPOUSE IN THE ROOM TO VISIT AND HELP WITH DISCHARGE PLANNING THIS SHIFT. DECISION WAS MADE TO PLAN ON DISCHARGING TO [facility]. AWAITING PLACEMENT. PATIENT SITTING UP IN BED. PATIENT DENIES NEEDS.
--- NOTE | 2020-07-25 04:34 | NUR ---
SHIFT SUMMARY PT HAS RESTED COMFORTABLY THIS SHIFT. THERE HAVE BEEN NO ACUTE CHANGES OVERNIGHT. PT IS PLESANTLY CONFUSED AND DENIED NEEDS WHEN ASKED. TOLERATED HER MEDS CRUSHED WITH APPLESAUCE, ASPIRATION PRECAUTIONS MAINTAINED. VITALS STABLE. BED IN LOWEST POSITION, CALL LIGHT WITHIN REACH.
--- NOTE | 2020-07-25 17:59 | NUR ---
SHIFT SUMMARY PATIENT ALERT AND ORIENTED TO SELF THIS AM. PATIENT COOPERATIVE WITH CARE THIS SHIFT. PATIENT WORKED WITH OT EARLY THIS AFTERNOON THEN PT. APPROXIMATELY 1645 PATIENT'S EXITED THE ROOM STATING THAT PATIENT HAD HER HEAD TURNED AND WAS NOT MOVING HER EYES. PATIENT ASSESSED THEN REASSESSED BY DAVIDSON KING RN. PATIENT WAS VERBALLY RESPONSIVE WITH YES OR NO QUESTIONS, WITHOUT PUPIL REACTION IN THE LEFT EYE, WITH HER HEAD TURNED TO THE LEFT AND UP. PATIENT WITH EQUAL OUTSIDE UPHOLSTERER BILATTERALLY, MODERATELY WEAK BILATTERALLY. DOCTOR MIR NOTIFIED, CT ORDERED. SLIGHT MOVEMENT REGAINED PRIOR TO CT. EYES STARTED TRACKING, YET STILL FAIL TO TRACK PAST CENTER. PATIENT IDENTIFIED BY NAME AND HER AT THIS TIME. DR MIR IN THE ROOM AFTER CT. DECISION WAS MADE BY PATIENT'S TO NOT OBTAIN IV HEPARIN ORDERS AT THIS TIME AFTER DISCUSSION WITH DOCTOR MIR ABOUT PROS AND CONS. PATIENT CURRENTLY SITTING UP IN BED EATING WITH THE ASSISTANCE OF THE FOSTER PARENT, AT THE BEDSIDE.
--- NOTE | 2020-07-26 07:29 | NUR ---
SHIFT SUMMARY PATIENT LARGELY NONVERBAL AND NOT ORIENTED TO MUCH BEYOND HERSELF. PATIENT REMAINS ON 2 LITERS O2 VIA NASAL CANULA. IV PATENT AND FLUSHED. BED IN LOWEST POSITION WITH WHEELS LOCKED AND ALARM ON. CALL LIGHT WITHIN REACH. REPORT GIVEN TO ONCOMING RN.
[2020-07-26 17:31] LABS: Cholesterol 127 mg/dL (50-200); HDL Cholesterol 21 mg/dL (>39); LDL/HDL RATIO 3.6; Low Density Lipoprotein Chol 76 mg/dL (0-110); Triglycerides 149 mg/dL (30-160); Very Low Density Lipoprot Chol 29 mg/dL (6-32)
--- NOTE | 2020-07-26 19:00 | NUR ---
ASSUMED CARE RECEIVED REPORT FROM ANALY RAVI. ASSUMED CARE OF PT. RESTING COMFORTABLY AT THIS TIME, NO S/S ACUTE DISTRESS NOTED. RESPS EVEN AND UNLABORED. DENIES NEEDS AT THIS TIME. CALL LIGHT, POSSESSIONS IN REACH. WILL CONTINUE TO MONITOR.
--- NOTE | 2020-07-26 19:11 | NUR ---
SHIFAHEEM SUMMARY: NO ACUTE CHANGES TO REPORT THIS SHIFT. PT HX DEMENTIA; A&O X1-2; CALM AND COOPERATIVE WITH CARE. NO C/O PAIN THIS SHIFT. SPEECH EVAL THIS SHIFT; ASPIRATION PRECAUTIONS REMAIN IN EFFECT. O2 @ 2L HUMIDIFIED. AWAITING D/C TO SNF. WCTM.
[2020-07-27 05:18] LABS: BASOPHILS ABSOLUTE AUTO 0.03 K/mm3 (0.00-0.23); BASOPHILS PERCENT AUTO 1 % (0-2); EOSINOPHILS ABSOLUTE AUTO 0.15 K/mm3 (0.00-0.68); EOSINOPHILS PERCENT AUTO 2 % (0-6); Hematocrit 35.7 % (33.0-51.0); Hemoglobin 11.5 g/dL (11.5-16.0); IMMATURE GRAN ABSOLUTE AUTO 0.02 K/mm3 (0.00-0.10); IMMATURE GRAN PERCENT AUTO 0 % (0-1); LYMPHOCYTES ABSOLUTE AUTO 0.79 K/mm3 (0.84-5.20); LYMPHOCYTES PERCENT AUTO 12 % (21-46); MONOCYTES ABSOLUTE AUTO 0.49 K/mm3 (0.16-1.47); MONOCYTES PERCENT AUTO 8 % (4-13); Mean Corpuscular HGB 30.1 pg (26.0-34.0); Mean Corpuscular HGB Conc 32.2 g/dL (31.5-36.5); Mean Corpuscular Volume 94 fL (80-100); Mean Platelet Volume 10.2 fL (9.1-12.4); NEUTROPHILS PERCENT AUTO 77 % (41-73); Platelet Count 157 K/mm3 (150-400); RDW Coefficient Variation 12.7 % (11.7-14.2); RDW Standard Deviation 43.6 fL (35.1-46.3); Red Blood Cell Count 3.82 M/mm3 (3.80-5.20); White Blood Cell Count 6.38 K/mm3 (4.00-11.30)
[2020-07-27 05:37] LABS: Albumin, Blood 2.6 g/dL (3.4-5.0); Anion Gap 5 mmol/L (6-16); Blood Urea Nitrogen 23 mg/dL (8-24); Bun/Creatinine Ratio 19.8 (12.0-20.0); CO2, Blood 31 mmol/L (21-32); Calcium, Blood 8.8 mg/dL (8.5-10.1); Chloride, Blood 107 mmol/L (98-108); Creatinine, Blood 1.16 mg/dL (0.40-1.00); Glomerular Filtration Rate 49 (60-); Glucose, Blood 100 mg/dL (70-99); Phosphorus, Blood 3.6 mg/dL (2.5-4.9); Potassium, Blood 3.5 mmol/L (3.5-5.5); Sodium, Blood 143 mmol/L (136-145)
--- NOTE | 2020-07-27 06:28 | NUR ---
SHIFT SUMMARY PT RESTING IN BED COMFORTABLY, NO S/S ACUTE DISTRESS NOTED. WAS MONITORED EVERY 1-2 HOURS WITH NEEDS MET. VSS. NEURO STATUS STABLE. SLEPT T/O NIGHT. PT APPEARS COMFORTABLE AT THIS TIME. CALL LIGHT, POSSESSIONS IN REACH. WILL CONTINUE TO MONITOR AND PROVIDE CARE NEEDED UNTIL DAY RN ASSUMES CARE
--- NOTE | 2020-07-27 19:25 | NUR ---
SHIFT SUMAMRY: NO ACUTE CHANGES TO REPORT THIS SHIFT. PT ALERT; ORIENTED X1-2 R/T DEMENTIA; CALM; UNCOOPERATIVE WITH CRUSHED ORAL MEDS. NO C/O PAIN / PT IN NO APPARENT DISTRESS. ASPIRATION PRECAUTIONS. AWAITING FACILITY PLACEMENT. REPORT GIVEN TO ONCOMING RN.
--- NOTE | 2020-07-28 00:36 | NUR ---
PHYSICIAN COMMUNICATION CONTACTED CHARGE PREPARATION TECHNICIAN PHYSICIAN, DR LOPEZ, TO NOTIFY HIM THAT THE PATIENT LOST IV ACCESS AND TO ASK FOR A NO IV ACCESS ORDER. THIS RN ALSO MENTIONED THAT THE PATIENT HAD TWO IV MEDICATIONS, PEPCID AND PRN HYDRALAZINE, DR LOPEZ ORDERED THEM TO BE SWITCHED TO PO AT THE SAME DOSE AND FREQUENCY.
--- NOTE | 2020-07-28 07:26 | NUR ---
SHIFT SUMMARY PATIENT SEEMS WITHDRAWN BUT INTERACTS WITH STAFF WHEN SPOKEN TO. PATIENT SLEPT WELL ALL NIGHT. BED IN LOWEST POSITION WITH WHEELS LOCKED AND ALARM ON. CALL LIGHT WITHIN REACH. REPORT GIVEN TO ONCOMING RN.
[2020-07-28] MEDS ORDERED: ASPI81CH PO (13:15)
[2020-07-28] MEDS ORDERED: ATOR20 PO (13:16)
[2020-07-28] MEDS ORDERED: FAMO20 PO (13:17)
[2020-07-28] MEDS ORDERED: CIPR500 PO (13:17)
--- NOTE | 2020-07-28 15:31 | NUR ---
PT WAS DCD TO [facility]. REPORT WAS ATTEMPTED BUT THERE WAS NO ANSWER, THIS NURSE LEFT THE NUMBER TO THE MEDICAL FLOOR WITH THE GUEST ROOM INSPECTOR FOR THE NURSE TO CALL BACK AND OF NOW THEY STILL HAVE NOT CALLED FOR REPORT. PACKET WAS SENT WITH THE COOPERAGE SHOP SUPERVISOR. NO FEVER ON DC. ALL PERSONAL BELONGINGS SENT WITH THE WHO WAS FOLLOWING HER OVER TO THE FACILITY. PT WAS STABLE ON DC.
== END 2020-07-28 15:26 | DRG 65 ==
LOC: ER 12:57 → MEDS 15:43 → ENPENDDIS 07-28 13:53 → MEDS 07-28 15:26
PROVIDERS: Emergency Medicine; Internal Medicine; ADMIT Internal Medicine
DX: I63.9 Cerebral infarction, unspecified (principal); J96.11 Chronic respiratory failure with hypoxia; N39.0 Urinary tract infection, site not specified; G81.91 Hemiplegia, unspecified affecting right dominant side; N17.9 Acute kidney failure, unspecified; Z20.828 Contact with and (suspected) exposure to other viral communicable diseases; G31.83 Neurocognitive disorder with Lewy bodies; I12.9 Hypertensive chronic kidney disease with stage 1 through stage 4 chronic kidney disease, or unspecified chronic kidney disease; I48.91 Unspecified atrial fibrillation; N18.3 Chronic kidney disease, stage 3 (moderate); R54 Age-related physical debility; F02.80 Dementia in other diseases classified elsewhere, unspecified severity, without behavioral disturbance, psychotic disturbance, mood disturbance, and anxiety; B96.4 Proteus (mirabilis) (morganii) as the cause of diseases classified elsewhere; Z86.73 Personal history of transient ischemic attack (TIA), and cerebral infarction without residual deficits; J44.9 Chronic obstructive pulmonary disease, unspecified; Z87.891 Personal history of nicotine dependence; Z66 Do not resuscitate; Z99.81 Dependence on supplemental oxygen
CPT/HCPCS: 36415; 70450; 70496; 70498; 71045; 80048; 80053; 80061; 80069; 81001; 82803; 84484; 85025; 85027; 85610; 85730; 86850; 86900; 86901; 87077; 87086; 87186; 92526; 92610; 93005; 93010; 93306; 94640; 94760; 97110; 97112; 97162; 97166; 97530; 97535; 99285-25; A9270-GY; J0744; J1650; J7120; P9612; Q9967; U0002